=== PATIENT | male | born 1955 | race African-American/Black ===

== ENCOUNTER 2017-01-10 11:45 | Emergency (ER) | payer MEDICAID ==
[~2017-01-10] VITALS: Ht 165.1 cm; Wt 64.0 kg
[2017-01-10 12:26] VITALS: BP 152/91
== END 2017-01-10 14:55 | disposition home or self-care (01) ==
LOC: ER 13:26
DX: J06.9 Acute upper respiratory infection, unspecified (principal); F17.210 Nicotine dependence, cigarettes, uncomplicated
CPT/HCPCS: 99283

== ENCOUNTER 2024-01-29 04:55 | Emergency (ER) | payer MEDICAID, OTHER ==
[~2024-01-29] VITALS: Ht 165.1 cm; Wt 75.0 kg
[2024-01-29 05:02] VITALS: TEMP 98.2; O2SAT 98
[2024-01-29 06:10] LABS: CLARITY URINE CLOUDY (CLEAR); COLOR URINE YELLOW (YELLOW); GLUCOSE URINE NEGATIVE (NEGATIVE); KETONES URINE NEGATIVE (NEGATIVE); LEUKOCYTE ESTERASE URINE 2+ (NEGATIVE); NITRITE URINE POSITIVE (NEGATIVE); OCCULT BLOOD URINE NEGATIVE (NEGATIVE); PH URINE 6.5 (4.5-8.0); PROTEIN URINE NEGATIVE (NEGATIVE); SPECIFIC GRAVITY URINE 1.011 (1.005-1.030); UROBILINOGEN URINE 0.2 E.U./dL (0.2-1.0)
[2024-01-29] MEDS: LIDOCAINE HCL 2% JELLY 5ML MM ONE (06:42)
[2024-01-29 07:06] LABS: HEMATOCRIT. 36.6 % (42.0-52.0); HEMOGLOBIN. 12.3 g/dL (14.0-18.0); MEAN CORPUSCULAR HEMOGLOBIN 30.8 pg (28.0-32.0); MEAN CORPUSCULAR HGB CONC 33.5 g/dL (31.0-37.0); MEAN CORPUSCULAR VOLUME 91.7 fL (80.0-94.0); MEAN PLATELET VOLUME 7.9 fl (7.4-10.4); PLATELET 427 x1000/uL (130-400); RED BLOOD CELL COUNT 3.98 mill/uL (4.7-6.1); RED CELL DISTRIBUTION WIDTH 13.7 % (11.6-14.6); WHITE BLOOD COUNT 18.9 x1000/uL (4.5-11.0)
[2024-01-29 07:08] LABS: DIFFERENTIAL COMMENT 1
[2024-01-29 07:12] LABS: CHLORIDE 102 mEq/L (98-107); SODIUM 136 mEq/L (136-145)
[2024-01-29 07:13] LABS: CARBON DIOXIDE 25 mEq/L (21-32)
[2024-01-29 07:18] LABS: CREATININE 0.8 mg/dL (0.6-1.3); GLUCOSE 129 mg/dL (70-105); UREA NITROGEN BLOOD 12 mg/dL (9-23)
[2024-01-29 07:20] LABS: ALANINE AMINOTRANSFERASE 15 IU/L (10-49); ALBUMIN 4.3 g/dL (3.2-4.8); ASPARTATE AMINOTRANSFERASE 18 IU/L (<34); BILIRUBIN TOTAL 0.9 mg/dL (0.1-1.0); PROTEIN TOTAL 7.7 g/dL (6.0-8.3)
[2024-01-29 07:25] LABS: RBC URINE NONE SEEN /hpf (0-2); SQUAMOUS EPITHELIAL CELL URINE NONE SEEN /lpf (RARE/1+); WBC URINE 25-50 /hpf (0-2)
[2024-01-29 07:26] LABS: BACTERIA URINE 3+
[2024-01-29] MEDS: POTASSIUM CHLORIDE 20MEQ TABLET SR PO ONE (09:05)
[2024-01-29] MEDS: CEFTRIAXONE 1GM/50ML 50 ML IV ONE (09:05)
[2024-01-29] MEDS ORDERED: CEFP200T13 MT (09:13)
[2024-01-29 09:46] VITALS: BP 124/82; PULSE 98; RESP 17
[2024-01-29 14:39] LABS: PLATELET ESTIMATE INCREASED
== END 2024-01-29 09:47 | disposition home or self-care (01) ==
LOC: ER 04:55
DX: R33.9 Retention of urine, unspecified (principal); N39.0 Urinary tract infection, site not specified; E87.6 Hypokalemia; Z86.73 Personal history of transient ischemic attack (TIA), and cerebral infarction without residual deficits
CPT/HCPCS: 99285; 96365; 80053; 81003; 85025; 87086; 87186; 87077; 36415; J0696